=== PATIENT | female | born 1965 | race African-American/Black ===

== ENCOUNTER 2018-03-20 08:57 | Emergency (ER) | payer MEDICAID ==
[~2018-03-20] VITALS: Ht 165.1 cm; Wt 61.3 kg
[2018-03-20] MEDS ORDERED: MIDAZOLAM HCL 2 MG/2 ML VIAL IM ONE (09:15)
[2018-03-20] MEDS ORDERED: SODIUM PHOS/SODIUM BIPHOS 133 ML ENEMA PR ONE (09:15)
[2018-03-20] MEDS ORDERED: SODIUM CHLORIDE 0.9% 1,000 ML IV ONE (10:00)
[2018-03-20] MEDS ORDERED: LORazepam 2 MG/ML VIAL IVP ONE (10:00)
[2018-03-20] MEDS ORDERED: KETOROLAC TROMETHAMINE 30 MG/ML VIAL IVP ONE (10:00)
[2018-03-20] MEDS ORDERED: HALOPERIDOL LACTATE 5 MG/ML VIAL IVP ONE (10:30)
[2018-03-20 10:52] LABS: AMPHET/METH SCREEN,URINE POSITIVE (NEGATIVE); BARBITURATE SCREEN, URINE NEGATIVE (NEGATIVE); BENZODIAZEPINES SCREEN,URINE POSITIVE (NEGATIVE); CANNABINOID SCREEN,URINE NEGATIVE (NEGATIVE); COCAINE SCREEN,URINE NEGATIVE (NEGATIVE); METHADONE SCREEN, URINE NEGATIVE (NEGATIVE); OPIATE SCREEN,URINE NEGATIVE (NEGATIVE)
[2018-03-20 10:55] LABS: PHENCYCLIDINE SCREEN,URINE NEGATIVE (NEGATIVE)
[2018-03-20 10:58] LABS: APPEARANCE,URINE CLOUDY (CLEAR); BILIRUBIN,URINE NEGATIVE (NEGATIVE); GLUCOSE, URINE (UA) NEGATIVE (NEGATIVE); KETONES,URINE NEGATIVE (NEGATIVE); LEUKOCYTE ESTERASE ,URINE NEGATIVE (NEGATIVE); NITRATE,URINE NEGATIVE (NEGATIVE); OCCULT BLOOD,URINE SMALL (NEGATIVE); PH,URINE 7.5 (5.0-8.0); PROTEIN,URINE NEGATIVE (NEGATIVE); UROBILINOGEN,URINE 0.2 mg/dL (<=1.0)
[2018-03-20 11:09] LABS: BACTERIA,URINE Few /HPF (None Seen); RBC,URINE 0-2 /HPF (0-2); SQUAMOUS EPITHELIAL CELL,UR Few /LPF (None Seen); WBC,URINE None Seen /HPF (0-5)
[2018-03-20 11:24] LABS: ANION GAP 8 mmol/L (8-16); CALCIUM, TOTAL 7.8 mg/dL (8.8-10.5); CARBON DIOXIDE 29 mmol/L (22-29); CHLORIDE 104 mmol/L (98-107); CREATININE 0.89 mg/dL (0.60-1.30); GLOMERULAR FILTR. RATE CALC > 60 mL/min (>60); GLUCOSE,RANDOM 123 mg/dL (70-110); POTASSIUM 3.7 mmol/L (3.5-5.1); SODIUM SERUM 141 mmol/L (136-145); UREA NITROGEN, BLOOD 13 mg/dL (7-18)
[2018-03-20 11:25] LABS: BASOPHILS % (AUTO) 0.4 % (0.0-2.0); EOSINOPHILS % (AUTO) 0.1 % (1.0-6.0); HEMATOCRIT 40.1 % (36-46); HEMOGLOBIN 13.2 g/dL (12.0-16.0); LYMPHOCYTES # (AUTO) 0.8 K/uL (1.0-4.8); LYMPHOCYTES % (AUTO) 9.5 % (22.0-44.0); MEAN CORPUSCULAR HEMOGLOBIN 27.8 pg (26.0-34.0); MEAN CORPUSCULAR VOLUME 84 fL (80-100); MONOCYTES # (AUTO) 0.3 K/uL (0.1-1.0); MONOCYTES % (AUTO) 3.8 % (2.0-9.0); NEUTROPHILS # (AUTO) 7.3 K/uL (1.8-7.7); PLATELET COUNT (AUTO) 251 K/uL (150-450); RED BLOOD CELL COUNT(AUTO) 4.75 MIL/uL (4.00-5.20); RED CELL DISTRIBUTION WIDTH 13.8 % (11.5-14.5)
[2018-03-20 11:29] LABS: NEUTROPHILS % (AUTO) 86.2 % (40.0-70.0)
[2018-03-20 11:31] LABS: ALANINE AMINOTRANSFERASE 22 U/L (12-78); ALBUMIN 3.5 g/dL (3.4-5.0); ALKALINE PHOSPHATASE 73 U/L (46-116); ASPARTATE AMINOTRANSFERASE 25 U/L (15-37); BILIRUBIN,TOTAL 0.5 mg/dL (0.1-1.0); LIPASE 93 U/L (73-393)
[2018-03-20 11:38] LABS: HCG,QUANTITATIVE 1 mIU/mL (0-6)
[2018-03-20 14:07] VITALS: BP 123/77
[2018-03-20 20:20] LABS: GLUCOSE,POINT OF CARE 131 MG/DL (70-110)
== END 2018-03-20 16:11 | disposition home or self-care (01) ==
LOC: EMS 08:58
DX: N20.9 Urinary calculus, unspecified (principal); F41.9 Anxiety disorder, unspecified; F15.10 Other stimulant abuse, uncomplicated; R19.7 Diarrhea, unspecified; Z79.899 Other long term (current) drug therapy
CPT/HCPCS: 36415; 74176; 80053; 80307; 81001; 82962; 83690; 84702; 85025; 93005; 96372; 96374; 96375; 99285; J1630; J1885; J2060; J2250; J7030

== ENCOUNTER 2018-03-22 11:07 | Emergency (ER) | payer MEDICAID ==
[~2018-03-22] VITALS: Ht 152.4 cm; Wt 59.1 kg
[2018-03-22 12:47] VITALS: BP 147/87
== END 2018-03-22 12:50 | disposition home or self-care (01) ==
LOC: EMS 11:08
DX: B34.9 Viral infection, unspecified (principal); J06.9 Acute upper respiratory infection, unspecified; J02.9 Acute pharyngitis, unspecified; M79.10 Myalgia, unspecified site; R42 Dizziness and giddiness
CPT/HCPCS: 99283

== ENCOUNTER 2018-05-01 11:09 | Emergency (ER) | payer MEDICAID ==
[~2018-05-01] VITALS: Ht 152.4 cm; Wt 65.0 kg
[~2018-05-01 11:09] MED LIST: LISI-662 PO
[2018-05-01] MEDS ORDERED: IBUPROFEN 600 MG TABLET PO ONE (11:45)
[2018-05-01] MEDS ORDERED: PERTUSS(ACELL),DIPH,TET VAC/PF 0.5 ML VIAL IM ONE (11:45)
[2018-05-01 12:53] VITALS: BP 124/61
== END 2018-05-01 13:09 | disposition home or self-care (01) ==
LOC: EMS 11:11
DX: S61.211A Laceration without foreign body of left index finger without damage to nail, initial encounter (principal); Z79.899 Other long term (current) drug therapy; W25.XXXA Contact with sharp glass, initial encounter; Y93.E5 Activity, floor mopping and cleaning; Y92.098 Other place in other non-institutional residence as the place of occurrence of the external cause; Y99.8 Other external cause status
CPT/HCPCS: 90471; 90715

== ENCOUNTER 2018-05-21 01:30 | Emergency (ER) | payer MEDICAID ==
[~2018-05-21] VITALS: Ht 152.4 cm; Wt 61.4 kg
[2018-05-21] MEDS ORDERED: METH500T6 PO (01:42)
[2018-05-21 02:15] VITALS: BP 103/61
== END 2018-05-21 02:36 | disposition home or self-care (01) ==
LOC: EMS 01:31
DX: S90.464A Insect bite (nonvenomous), right lesser toe(s), initial encounter (principal); Z79.899 Other long term (current) drug therapy; W57.XXXA Bitten or stung by nonvenomous insect and other nonvenomous arthropods, initial encounter; Y93.89 Activity, other specified; Y92.89 Other specified places as the place of occurrence of the external cause; Y99.8 Other external cause status

== ENCOUNTER 2018-07-19 09:15 | Emergency (ER) | payer MEDICAID ==
[~2018-07-19] VITALS: Ht 152.4 cm; Wt 60.9 kg
[~2018-07-19 09:15] MED LIST changes: +METH500T6 PO
[2018-07-19 11:03] LABS: EOSINOPHILS % (AUTO) 0.9 % (1.0-6.0); HEMATOCRIT 37.2 % (36-46); HEMOGLOBIN 11.9 g/dL (12.0-16.0); LYMPHOCYTES # (AUTO) 1.6 K/uL (1.0-4.8); LYMPHOCYTES % (AUTO) 24.2 % (22.0-44.0); MEAN CORPUSCULAR HEMOGLOBIN 27.3 pg (26.0-34.0); MEAN CORPUSCULAR HGB CONC 32.1 G/dL (31.0-37.0); MEAN CORPUSCULAR VOLUME 85 fL (80-100); MONOCYTES # (AUTO) 0.5 K/uL (0.1-1.0); NEUTROPHILS # (AUTO) 4.4 K/uL (1.8-7.7); NEUTROPHILS % (AUTO) 66.9 % (40.0-70.0); PLATELET COUNT (AUTO) 292 K/uL (150-450); RED BLOOD CELL COUNT(AUTO) 4.37 MIL/uL (4.00-5.20)
[2018-07-19 11:21] LABS: ANION GAP 4 mmol/L (8-16); CALCIUM, TOTAL 8.5 mg/dL (8.8-10.5); CARBON DIOXIDE 31 mmol/L (22-29); CHLORIDE 104 mmol/L (98-107); CREATININE 0.69 mg/dL (0.60-1.30); GLOMERULAR FILTR. RATE CALC > 60 mL/min (>60); GLUCOSE,RANDOM 75 mg/dL (70-110); POTASSIUM 4.6 mmol/L (3.5-5.1); SODIUM SERUM 139 mmol/L (136-145); UREA NITROGEN, BLOOD 17 mg/dL (7-18)
[2018-07-19 11:33] LABS: ALANINE AMINOTRANSFERASE 20 U/L (12-78); ALBUMIN 3.2 g/dL (3.4-5.0); ALKALINE PHOSPHATASE 64 U/L (46-116); ASPARTATE AMINOTRANSFERASE 21 U/L (15-37); BILIRUBIN,TOTAL 0.5 mg/dL (0.1-1.0); HCG,QUANTITATIVE 2 mIU/mL (0-6); TOTAL PROTEIN, SERUM 6.6 g/dL (6.4-8.2)
[2018-07-19 11:46] LABS: APPEARANCE,URINE CLOUDY (CLEAR); BILIRUBIN,URINE NEGATIVE (NEGATIVE); GLUCOSE, URINE (UA) NEGATIVE (NEGATIVE); KETONES,URINE NEGATIVE (NEGATIVE); LEUKOCYTE ESTERASE ,URINE SMALL (NEGATIVE); NITRATE,URINE NEGATIVE (NEGATIVE); OCCULT BLOOD,URINE NEGATIVE (NEGATIVE); PH,URINE 5.5 (5.0-8.0); PROTEIN,URINE NEGATIVE (NEGATIVE); UROBILINOGEN,URINE 0.2 mg/dL (<=1.0)
[2018-07-19 11:48] LABS: AMPHET/METH SCREEN,URINE POSITIVE (NEGATIVE); BARBITURATE SCREEN, URINE NEGATIVE (NEGATIVE); BENZODIAZEPINES SCREEN,URINE NEGATIVE (NEGATIVE); CANNABINOID SCREEN,URINE NEGATIVE (NEGATIVE); COCAINE SCREEN,URINE NEGATIVE (NEGATIVE); METHADONE SCREEN, URINE NEGATIVE (NEGATIVE); OPIATE SCREEN,URINE NEGATIVE (NEGATIVE)
[2018-07-19 11:49] LABS: PHENCYCLIDINE SCREEN,URINE NEGATIVE (NEGATIVE)
[2018-07-19 11:53] LABS: BACTERIA,URINE None Seen /HPF (None Seen); RBC,URINE None Seen /HPF (0-2); SQUAMOUS EPITHELIAL CELL,UR Few /LPF (None Seen)
[2018-07-19] MEDS ORDERED: IBUPROFEN 600 MG TABLET PO ONE (12:15)
[2018-07-19 12:27] VITALS: BP 112/98
== END 2018-07-19 12:45 | disposition home or self-care (01) ==
LOC: EMS 09:18
DX: M54.5 Low back pain (principal)

== ENCOUNTER 2018-11-05 16:40 | Emergency (ER) | payer MEDICAID ==
[~2018-11-05] VITALS: Ht 165.1 cm; Wt 68.2 kg
[2018-11-05 16:46] VITALS: BP 132/92
== END 2018-11-05 19:18 | disposition left against medical advice (07) ==
LOC: EMS 16:41
DX: F41.9 Anxiety disorder, unspecified (principal); Z53.21 Procedure and treatment not carried out due to patient leaving prior to being seen by health care provider

== ENCOUNTER 2020-01-13 17:56 | Emergency (ER) | payer MEDICAID ==
[~2020-01-13] VITALS: Ht 152.4 cm; Wt 63.6 kg
[2020-01-13 19:18] LABS: BASOPHILS % (AUTO) 0.4 % (0.0-2.0); EOSINOPHILS % (AUTO) 0.9 % (1.0-6.0); HEMATOCRIT 38.9 % (36-46); HEMOGLOBIN 12.6 g/dL (12.0-16.0); LYMPHOCYTES # (AUTO) 1.8 K/uL (1.0-4.8); LYMPHOCYTES % (AUTO) 27.3 % (22.0-44.0); MEAN CORPUSCULAR HEMOGLOBIN 27.8 pg (26.0-34.0); MEAN CORPUSCULAR HGB CONC 32.5 G/dL (31.0-37.0); MEAN CORPUSCULAR VOLUME 86 fL (80-100); MONOCYTES # (AUTO) 0.5 K/uL (0.1-1.0); MONOCYTES % (AUTO) 7.8 % (2.0-9.0); NEUTROPHILS # (AUTO) 4.2 K/uL (1.8-7.7); NEUTROPHILS % (AUTO) 63.6 % (40.0-70.0); PLATELET COUNT (AUTO) 341 K/uL (150-450); RED BLOOD CELL COUNT(AUTO) 4.56 MIL/uL (4.00-5.20); RED CELL DISTRIBUTION WIDTH 13.3 % (11.5-14.5)
[2020-01-13 19:29] LABS: ANION GAP 4 mmol/L (8-16); CALCIUM, TOTAL 9.1 mg/dL (8.8-10.5); CARBON DIOXIDE 31 mmol/L (22-29); CHLORIDE 105 mmol/L (98-107); CREATININE 1.08 mg/dL (0.60-1.30); GLOMERULAR FILTR. RATE CALC > 60 mL/min (>60); GLUCOSE,RANDOM 88 mg/dL (70-110); POTASSIUM 4.1 mmol/L (3.5-5.1); SODIUM SERUM 140 mmol/L (136-145); UREA NITROGEN, BLOOD 16 mg/dL (7-18)
[2020-01-13 19:34] LABS: ALANINE AMINOTRANSFERASE 24 U/L (12-78); ALBUMIN 3.6 g/dL (3.4-5.0); ALKALINE PHOSPHATASE 79 U/L (46-116); ASPARTATE AMINOTRANSFERASE 22 U/L (15-37); BILIRUBIN,TOTAL 0.5 mg/dL (0.1-1.0); TOTAL PROTEIN, SERUM 7.5 g/dL (6.4-8.2)
[2020-01-13 20:15] VITALS: BP 132/82
== END 2020-01-13 20:16 | disposition home or self-care (01) ==
LOC: EMS 17:56
DX: R42 Dizziness and giddiness (principal)
CPT/HCPCS: 93005

== ENCOUNTER 2020-10-17 04:00 | Emergency (ER) | payer MEDICAID ==
[~2020-10-17] VITALS: Ht 154.9 cm; Wt 65.0 kg
[~2020-10-17 04:00] MED LIST changes: -LISI-662 PO; +LISI-894 PO; +METH-811 PO; -METH500T6 PO
[2020-10-17] MEDS ORDERED: GuaiFENesin/D-METHORPHAN [SUGAR-FREE] 200-20MG/10 ML SYRUP UDCUP PO ONE (04:45)
[2020-10-17] MEDS ORDERED: ACETAMINOPHEN 500 MG TABLET PO ONE (04:45)
[2020-10-17 05:05] LABS: COVID AG,FIA SOURCE NASOPHARYNGEAL
[2020-10-17 06:12] VITALS: BP 128/94
== END 2020-10-17 06:13 | disposition home or self-care (01) ==
LOC: EMS 04:01
DX: J06.9 Acute upper respiratory infection, unspecified (principal); Z79.899 Other long term (current) drug therapy; Z20.822 Contact with and (suspected) exposure to COVID-19
CPT/HCPCS: 87426; 99283

== ENCOUNTER 2020-11-03 01:57 | Emergency (ER) | payer MEDICAID ==
[~2020-11-03] VITALS: Ht 162.6 cm; Wt 65.0 kg
[2020-11-03] MEDS ORDERED: LIDOCAINE 1% 10 ML VIAL ID ONE (03:30)
[2020-11-03 04:14] VITALS: BP 147/104
== END 2020-11-03 04:31 | disposition left against medical advice (07) ==
LOC: EMS 01:58
DX: S60.551A Superficial foreign body of right hand, initial encounter (principal); F41.9 Anxiety disorder, unspecified; X58.XXXA Exposure to other specified factors, initial encounter; Y93.89 Activity, other specified; Y92.89 Other specified places as the place of occurrence of the external cause; Y99.0 Civilian activity done for income or pay
CPT/HCPCS: 73130; 99283; J3490

== ENCOUNTER 2020-11-03 09:20 | Emergency (ER) | payer MEDICAID ==
[~2020-11-03] VITALS: Ht 162.6 cm; Wt 65.0 kg
[2020-11-03 09:21] VITALS: BP 125/96
[2020-11-03] MEDS ORDERED: DOXYCYCLINE HYCLATE 100 MG TABLET PO ONE (10:30)
[2020-11-03] MEDS ORDERED: BACITRACIN 0.9 GM PACKET OINTMENT TP ONE (10:30)
== END 2020-11-03 11:01 | disposition home or self-care (01) ==
LOC: EMS 09:26
DX: S60.551A Superficial foreign body of right hand, initial encounter (principal); I10 Essential (primary) hypertension; F17.210 Nicotine dependence, cigarettes, uncomplicated; W45.8XXA Other foreign body or object entering through skin, initial encounter; Y93.89 Activity, other specified; Y92.89 Other specified places as the place of occurrence of the external cause; Y99.8 Other external cause status
CPT/HCPCS: 10120; 99285; Z7502; Z7610

== ENCOUNTER 2020-11-24 21:39 | Emergency (ER) | payer MEDICAID | END 2020-11-24 23:10 | disposition left against medical advice (07) | LOC: EMS 21:40 | DX: Z00.00 Encounter for general adult medical examination without abnormal findings (principal); Z53.21 Procedure and treatment not carried out due to patient leaving prior to being seen by health care provider ==

== ENCOUNTER 2020-12-05 09:59 | Emergency (ER) | payer MEDICAID ==
[~2020-12-05] VITALS: Ht 162.6 cm; Wt 65.0 kg
[2020-12-05] MEDS ORDERED: MAGNESIUM CITRATE 300 ML ORAL SOLUTION PO ONE (10:30)
[2020-12-05] MEDS ORDERED: HALOPERIDOL LACTATE 5 MG/ML VIAL IM ONE (11:15)
[2020-12-05] MEDS ORDERED: SODIUM PHOS/SODIUM BIPHOS 133 ML ENEMA PR ONE (11:15)
[2020-12-05] MEDS ORDERED: SODIUM CHLORIDE 0.9% 0 ML ONE (11:43)
[2020-12-05] MEDS ORDERED: IOHEXOL 350 MG/ML 100 ML VIAL ONE (11:43)
[2020-12-05] MEDS ORDERED: ACETAMINOPHEN 325 MG TABLET PO ONE (11:45)
[2020-12-05 11:46] LABS: BASOPHILS % (AUTO) 0.1 % (0.0-2.0); EOSINOPHILS % (AUTO) 0.1 % (1.0-6.0); HEMATOCRIT 43.3 % (36-46); HEMOGLOBIN 13.4 g/dL (12.0-16.0); LYMPHOCYTES # (AUTO) 1.3 K/uL (1.0-4.8); LYMPHOCYTES % (AUTO) 12.5 % (22.0-44.0); MEAN CORPUSCULAR HEMOGLOBIN 26.9 pg (26.0-34.0); MEAN CORPUSCULAR VOLUME 87 fL (80-100); MONOCYTES # (AUTO) 0.5 K/uL (0.1-1.0); MONOCYTES % (AUTO) 4.9 % (2.0-9.0); NEUTROPHILS # (AUTO) 8.5 K/uL (1.8-7.7); NEUTROPHILS % (AUTO) 82.4 % (40.0-70.0); PLATELET COUNT (AUTO) 309 K/uL (150-450); RED BLOOD CELL COUNT(AUTO) 5.01 MIL/uL (4.00-5.20); RED CELL DISTRIBUTION WIDTH 13.7 % (11.5-14.5)
[2020-12-05 11:50] LABS: ANION GAP 7 mmol/L (8-16); CALCIUM, TOTAL 8.9 mg/dL (8.8-10.5); CARBON DIOXIDE 25 mmol/L (22-29); CHLORIDE 102 mmol/L (98-107); CREATININE 0.97 mg/dL (0.60-1.30); GLOMERULAR FILTR. RATE CALC > 60 mL/min (>60); GLUCOSE,RANDOM 118 mg/dL (70-110); POTASSIUM 4.3 mmol/L (3.5-5.1); SODIUM SERUM 134 mmol/L (136-145); UREA NITROGEN, BLOOD 18 mg/dL (7-18)
[2020-12-05] MEDS ORDERED: KETOROLAC TROMETHAMINE 30 MG/ML VIAL IM ONE (12:00)
[2020-12-05] MEDS ORDERED: KETOROLAC TROMETHAMINE 30 MG/ML VIAL IVP ONE (12:00)
[2020-12-05 12:12] LABS: LACTIC ACID 2.2 mmol/L (0.4-2.0)
[2020-12-05 12:15] LABS: ALANINE AMINOTRANSFERASE 27 U/L (12-78); ALBUMIN 3.6 g/dL (3.4-5.0); ALKALINE PHOSPHATASE 83 U/L (46-116); ASPARTATE AMINOTRANSFERASE 25 U/L (15-37); BILIRUBIN,TOTAL 0.6 mg/dL (0.1-1.0); LIPASE 50 U/L (73-393); TOTAL PROTEIN, SERUM 7.5 g/dL (6.4-8.2)
[2020-12-05 14:15] VITALS: BP 173/87
== END 2020-12-05 14:51 | disposition home or self-care (01) ==
LOC: EMS 10:07
DX: N13.2 Hydronephrosis with renal and ureteral calculous obstruction (principal); F17.210 Nicotine dependence, cigarettes, uncomplicated; I10 Essential (primary) hypertension; Z79.899 Other long term (current) drug therapy
CPT/HCPCS: 36415; 74022; 74176; 80053; 81002; 83605; 83690; 85025; 96372; 99285; J1630; J1885; A9575; J7050

== ENCOUNTER 2021-09-24 21:07 | Emergency (ER) | payer MEDICAID | END 2021-09-24 22:00 | disposition left against medical advice (07) | LOC: EMS 21:08 | DX: T62.91XA Toxic effect of unspecified noxious substance eaten as food, accidental (unintentional), initial encounter (principal); Z53.21 Procedure and treatment not carried out due to patient leaving prior to being seen by health care provider; Y92.89 Other specified places as the place of occurrence of the external cause ==

== ENCOUNTER 2022-01-14 12:34 | Emergency (ER) | payer MEDICAID ==
[~2022-01-14] VITALS: Ht 154.9 cm; Wt 65.0 kg
[2022-01-14 12:38] VITALS: BP 125/72
== END 2022-01-14 14:06 | disposition left against medical advice (07) ==
LOC: EMS 12:35
DX: Z53.21 Procedure and treatment not carried out due to patient leaving prior to being seen by health care provider (principal)

== ENCOUNTER 2023-01-14 13:54 | Emergency (ER) | payer MEDICAID ==
[~2023-01-14] VITALS: Ht 152.4 cm; Wt 68.2 kg
[~2023-01-14 13:54] MED LIST changes: -METH-811 PO
[2023-01-14 13:59] VITALS: TEMP 98.2
[2023-01-14] MEDS ORDERED: HydrOXYzine PAMOATE 50 MG CAPSULE PO ONE (14:30)
[2023-01-14 14:55] LABS: BASOPHILS % (AUTO) 0.6 % (0.0-2.0); EOSINOPHILS % (AUTO) 0.9 % (1.0-6.0); HEMATOCRIT 38.8 % (36-46); HEMOGLOBIN 12.6 g/dL (12.0-16.0); LYMPHOCYTES # (AUTO) 2.3 K/uL (1.0-4.8); MEAN CORPUSCULAR HEMOGLOBIN 27.1 pg (26.0-34.0); MEAN CORPUSCULAR HGB CONC 32.5 G/dL (31.0-37.0); MEAN CORPUSCULAR VOLUME 84 fL (80-100); MONOCYTES # (AUTO) 0.4 K/uL (0.1-1.0); NEUTROPHILS # (AUTO) 4.3 K/uL (1.8-7.7); NEUTROPHILS % (AUTO) 60.5 % (40.0-70.0); PLATELET COUNT (AUTO) 330 K/uL (150-450); RED BLOOD CELL COUNT(AUTO) 4.65 MIL/uL (4.00-5.20); RED CELL DISTRIBUTION WIDTH 13.5 % (11.5-14.5)
[2023-01-14 15:02] LABS: ANION GAP 6 mmol/L (8-16); CALCIUM, TOTAL 8.3 mg/dL (8.8-10.5); CARBON DIOXIDE 29 mmol/L (22-29); CHLORIDE 104 mmol/L (98-107); CREATININE 0.89 mg/dL (0.60-1.30); GLOMERULAR FILTR. RATE CALC > 60 mL/min (>60); GLUCOSE,RANDOM 106 mg/dL (70-110); POTASSIUM 3.8 mmol/L (3.5-5.1); SODIUM SERUM 139 mmol/L (136-145)
[2023-01-14 15:30] VITALS: BP 111/74; PULSE 69; RESP 17
[2023-01-14] MEDS ORDERED: HYDR50CA7 PO (15:58)
== END 2023-01-14 16:04 | disposition home or self-care (01) ==
LOC: EMS 13:57
DX: R06.00 Dyspnea, unspecified (principal); F41.9 Anxiety disorder, unspecified; I10 Essential (primary) hypertension; F17.210 Nicotine dependence, cigarettes, uncomplicated; Z98.890 Other specified postprocedural states
CPT/HCPCS: 71045; 80048; 84484; 85025; 93005; 99285; 36415-L1; 36415-TC

== ENCOUNTER 2023-07-31 12:46 | Emergency (ER) | payer MEDICAID ==
[~2023-07-31] VITALS: Ht 152.4 cm; Wt 63.6 kg
[~2023-07-31 12:46] MED LIST changes: +HYDR50CA7 PO
[2023-07-31 12:50] VITALS: TEMP 98.5
[2023-07-31 13:34] LABS: AMPHET/METH SCREEN,URINE POSITIVE (NEGATIVE); BARBITURATE SCREEN, URINE NEGATIVE (NEGATIVE); BENZODIAZEPINES SCREEN,URINE NEGATIVE (NEGATIVE); CANNABINOID SCREEN,URINE NEGATIVE (NEGATIVE); COCAINE SCREEN,URINE NEGATIVE (NEGATIVE); METHADONE SCREEN, URINE NEGATIVE (NEGATIVE); OPIATE SCREEN,URINE NEGATIVE (NEGATIVE); PHENCYCLIDINE SCREEN,URINE NEGATIVE (NEGATIVE)
[2023-07-31 13:35] VITALS: BP 149/105; PULSE 92; RESP 18
[2023-07-31 13:40] LABS: ALCOHOL, URINE DRUG SCREEN NEGATIVE (NEGATIVE)
== END 2023-07-31 14:24 | disposition home or self-care (01) ==
LOC: EMS 13:11
DX: T43.651A Poisoning by methamphetamines accidental (unintentional), initial encounter (principal); I10 Essential (primary) hypertension; F17.210 Nicotine dependence, cigarettes, uncomplicated; Z98.890 Other specified postprocedural states; Y92.89 Other specified places as the place of occurrence of the external cause
CPT/HCPCS: 80307; 99283

== ENCOUNTER 2023-08-24 10:38 | Emergency (ER) | payer MEDICAID ==
[~2023-08-24] VITALS: Ht 153 cm; Wt 65.0 kg
[2023-08-24 10:41] VITALS: TEMP 97.7
[2023-08-24 11:18] LABS: BASOPHILS % (AUTO) 0.7 % (0.0-2.0); EOSINOPHILS % (AUTO) 0.6 % (1.0-6.0); HEMATOCRIT 39.6 % (36-46); HEMOGLOBIN 12.8 g/dL (12.0-16.0); LYMPHOCYTES # (AUTO) 1.9 K/uL (1.0-4.8); LYMPHOCYTES % (AUTO) 20.6 % (22.0-44.0); MEAN CORPUSCULAR HEMOGLOBIN 26.9 pg (26.0-34.0); MEAN CORPUSCULAR HGB CONC 32.3 G/dL (31.0-37.0); MEAN CORPUSCULAR VOLUME 83 fL (80-100); MONOCYTES # (AUTO) 0.6 K/uL (0.1-1.0); MONOCYTES % (AUTO) 6.2 % (2.0-9.0); NEUTROPHILS # (AUTO) 6.7 K/uL (1.8-7.7); NEUTROPHILS % (AUTO) 71.9 % (40.0-70.0); PLATELET COUNT (AUTO) 353 K/uL (150-450); RED BLOOD CELL COUNT(AUTO) 4.76 MIL/uL (4.00-5.20); RED CELL DISTRIBUTION WIDTH 13.5 % (11.5-14.5); WHITE BLOOD COUNT (AUTO) 9.4 K/uL (4.5-11.0)
[2023-08-24 11:35] LABS: ANION GAP 5 mmol/L (8-16); CALCIUM, TOTAL 9.2 mg/dL (8.8-10.5); CARBON DIOXIDE 31 mmol/L (22-29); CHLORIDE 102 mmol/L (98-107); CREATININE 0.88 mg/dL (0.60-1.30); GLOMERULAR FILTR. RATE CALC > 60 mL/min (>60); GLUCOSE,RANDOM 76 mg/dL (70-110); POTASSIUM 4.2 mmol/L (3.5-5.1); SODIUM SERUM 138 mmol/L (136-145); UREA NITROGEN, BLOOD 14 mg/dL (7-18)
[2023-08-24 11:40] LABS: ALANINE AMINOTRANSFERASE 23 U/L (12-78); ALBUMIN 3.3 g/dL (3.4-5.0); ALKALINE PHOSPHATASE 85 U/L (46-116); ASPARTATE AMINOTRANSFERASE 22 U/L (15-37); BILIRUBIN,TOTAL 0.9 mg/dL (0.1-1.0); LIPASE 31 U/L (16-77); TOTAL PROTEIN, SERUM 7.5 g/dL (6.4-8.2)
[2023-08-24 11:59] LABS: APPEARANCE,URINE CLEAR (CLEAR); BILIRUBIN,URINE NEGATIVE (NEGATIVE); COLOR,URINE YELLOW (YELLOW); GLUCOSE, URINE (UA) NEGATIVE (NEGATIVE); KETONES,URINE NEGATIVE (NEGATIVE); LEUKOCYTE ESTERASE ,URINE NEGATIVE (NEGATIVE); NITRATE,URINE NEGATIVE (NEGATIVE); OCCULT BLOOD,URINE TRACE (NEGATIVE); PH,URINE 5.5 (5.0-8.0); PROTEIN,URINE TRACE mg/dL (NEGATIVE); SPECIFIC GRAVITIY, URINE 1.025 (1.003-1.030); UROBILINOGEN,URINE <=1.0 mg/dL (<=1.0)
[2023-08-24 12:07] LABS: RBC,URINE 0-2 /HPF (0-2); WBC,URINE None Seen /HPF (0-5)
[2023-08-24 12:08] LABS: BACTERIA,URINE Moderate /HPF (None Seen); SQUAMOUS EPITHELIAL CELL,UR Many /LPF (None Seen)
[2023-08-24 12:25] VITALS: BP 126/73; PULSE 82; RESP 16
== END 2023-08-24 13:15 | disposition left against medical advice (07) ==
LOC: EMS 10:38
DX: R10.84 Generalized abdominal pain (principal); I10 Essential (primary) hypertension; F17.210 Nicotine dependence, cigarettes, uncomplicated; Z98.890 Other specified postprocedural states
CPT/HCPCS: 74176; 80053; 81001; 83690; 85025; 87086; 87186; 99284

== ENCOUNTER 2023-12-11 07:59 | Emergency (ER) | payer MEDICAID ==
[~2023-12-11] VITALS: Ht 152.4 cm; Wt 72.7 kg
[2023-12-11 08:06] VITALS: TEMP 98.5
[2023-12-11] MEDS: MAG HYDROX/ALUMINUM HYD/SIMETH 30 ML SUSPENSION UDCUP PO ONE (08:26)
[2023-12-11] MEDS: ACETAMINOPHEN 500 MG TABLET PO ONE (08:27)
[2023-12-11 08:52] LABS: ANION GAP 5 mmol/L (8-16); BASOPHILS % (AUTO) 0.2 % (0.0-2.0); CARBON DIOXIDE 31 mmol/L (22-29); CHLORIDE 104 mmol/L (98-107); CREATININE 0.83 mg/dL (0.60-1.30); EOSINOPHILS % (AUTO) 0.6 % (1.0-6.0); GLOMERULAR FILTR. RATE CALC > 60 mL/min (>60); GLUCOSE,RANDOM 95 mg/dL (70-110); HEMATOCRIT 37.3 % (36-46); LYMPHOCYTES # (AUTO) 2.6 K/uL (1.0-4.8); LYMPHOCYTES % (AUTO) 29.5 % (22.0-44.0); MEAN CORPUSCULAR HGB CONC 32.2 G/dL (31.0-37.0); MEAN CORPUSCULAR VOLUME 84 fL (80-100); MONOCYTES # (AUTO) 0.8 K/uL (0.1-1.0); MONOCYTES % (AUTO) 8.5 % (2.0-9.0); NEUTROPHILS # (AUTO) 5.5 K/uL (1.8-7.7); NEUTROPHILS % (AUTO) 61.2 % (40.0-70.0); PLATELET COUNT (AUTO) 333 K/uL (150-450); POTASSIUM 4.1 mmol/L (3.5-5.1); RED BLOOD CELL COUNT(AUTO) 4.45 MIL/uL (4.00-5.20); RED CELL DISTRIBUTION WIDTH 13.6 % (11.5-14.5); SODIUM SERUM 140 mmol/L (136-145); UREA NITROGEN, BLOOD 11 mg/dL (7-18)
[2023-12-11 08:58] LABS: ALANINE AMINOTRANSFERASE 21 U/L (12-78); ALBUMIN 3.2 g/dL (3.4-5.0); ALKALINE PHOSPHATASE 78 U/L (46-116); ASPARTATE AMINOTRANSFERASE 22 U/L (15-37); BILIRUBIN,TOTAL 0.6 mg/dL (0.1-1.0)
[2023-12-11 09:00] LABS: TROPONIN I-HIGH SENSITIVITY 39 ng/L (<51)
[2023-12-11 09:11] LABS: LIPASE 25 U/L (16-77)
[2023-12-11 09:31] VITALS: BP 125/74; PULSE 89; RESP 18
== END 2023-12-11 09:34 | disposition home or self-care (01) ==
LOC: EMS 07:59
DX: R42 Dizziness and giddiness (principal); R20.2 Paresthesia of skin; I10 Essential (primary) hypertension; F17.210 Nicotine dependence, cigarettes, uncomplicated
CPT/HCPCS: 80048; 80076; 83690; 84484; 85025; 93005; 99284

== ENCOUNTER 2023-12-28 18:38 | Emergency (ER) | payer MEDICAID ==
[~2023-12-28] VITALS: Ht 152.4 cm; Wt 65.0 kg
[2023-12-28 18:42] VITALS: BP 138/67; PULSE 83; RESP 18; TEMP 98.5
[2023-12-28] MEDS: PERTUSS(ACELL),DIPH,TET/PF 0.5 ML SYRINGE [ADULT] IM. ONE (20:30)
[2023-12-28] MEDS: IBUPROFEN 600 MG TABLET PO ONE (20:31)
[2023-12-28] MEDS: CEPHALEXIN MONOHYDRATE 500 MG CAPSULE PO ONE (20:31)
== END 2023-12-28 21:36 | disposition home or self-care (01) ==
LOC: EMS 18:38
DX: S91.331A Puncture wound without foreign body, right foot, initial encounter (principal); I10 Essential (primary) hypertension; D64.9 Anemia, unspecified; F17.210 Nicotine dependence, cigarettes, uncomplicated; Z98.890 Other specified postprocedural states; X58.XXXA Exposure to other specified factors, initial encounter; Y93.89 Activity, other specified; Y92.89 Other specified places as the place of occurrence of the external cause; Y99.8 Other external cause status
CPT/HCPCS: 90471; 90715; 99283

== ENCOUNTER 2024-02-11 15:12 | Emergency (ER) | payer MEDICAID ==
[~2024-02-11] VITALS: Ht 152.4 cm; Wt 64.5 kg
[2024-02-11 15:19] VITALS: TEMP 97.7
[2024-02-11] MEDS ORDERED: CEPH-558 PO (15:56)
[2024-02-11] MEDS ORDERED: IBUP-1506 PO (15:56)
[2024-02-11] MEDS: IBUPROFEN 600 MG TABLET PO ONE (16:03)
[2024-02-11] MEDS: CEPHALEXIN MONOHYDRATE 500 MG CAPSULE PO ONE (16:04)
[2024-02-11 16:25] VITALS: BP 121/75; PULSE 74; RESP 18; O2SAT 99
== END 2024-02-11 16:33 | disposition home or self-care (01) ==
LOC: EMS 15:12
DX: S20.161A Insect bite (nonvenomous) of breast, right breast, initial encounter (principal); I10 Essential (primary) hypertension; F17.210 Nicotine dependence, cigarettes, uncomplicated; Z98.890 Other specified postprocedural states; W57.XXXA Bitten or stung by nonvenomous insect and other nonvenomous arthropods, initial encounter; Y93.89 Activity, other specified; Y92.89 Other specified places as the place of occurrence of the external cause; Y99.8 Other external cause status
CPT/HCPCS: 99283

== ENCOUNTER 2024-02-14 08:43 | Emergency (ER) | payer MEDICAID ==
[~2024-02-14] VITALS: Ht 152.4 cm; Wt 65.0 kg
[~2024-02-14 08:43] MED LIST changes: +CEPH-558 PO; +IBUP-1506 PO
[2024-02-14 08:47] VITALS: BP 138/94; PULSE 80; RESP 18; TEMP 98.2; O2SAT 99
[2024-02-14] MEDS ORDERED: PRED-554 PO (09:26)
== END 2024-02-14 09:38 | disposition home or self-care (01) ==
LOC: EMS 08:47
DX: R21 Rash and other nonspecific skin eruption (principal); I10 Essential (primary) hypertension; D64.9 Anemia, unspecified; F17.210 Nicotine dependence, cigarettes, uncomplicated; Z98.890 Other specified postprocedural states
CPT/HCPCS: 99283; Z7502

== ENCOUNTER 2024-06-06 13:58 | Emergency (ER) | payer MEDICAID ==
[~2024-06-06 13:58] MED LIST changes: +PRED-554 PO
== END 2024-06-06 15:24 | disposition left against medical advice (07) ==
LOC: EMS 13:58
DX: R10.9 Unspecified abdominal pain (principal); Z53.21 Procedure and treatment not carried out due to patient leaving prior to being seen by health care provider

== ENCOUNTER 2024-07-26 06:51 | Emergency (ER) | payer MEDICAID ==
[~2024-07-26] VITALS: Ht 160 cm; Wt 65.0 kg
[2024-07-26 06:55] VITALS: TEMP 98.4
[2024-07-26] MEDS ORDERED: LISI20TA24 PO (07:06)
[2024-07-26 08:03] LABS: BASOPHILS % (AUTO) 0.4 % (0.0-2.0); EOSINOPHILS % (AUTO) 1.1 % (1.0-6.0); HEMATOCRIT 39.9 % (36-46); LYMPHOCYTES # (AUTO) 1.7 K/uL (1.0-4.8); LYMPHOCYTES % (AUTO) 26.5 % (22.0-44.0); MEAN CORPUSCULAR HEMOGLOBIN 27.5 pg (26.0-34.0); MEAN CORPUSCULAR HGB CONC 32.6 G/dL (31.0-37.0); MEAN CORPUSCULAR VOLUME 84 fL (80-100); MONOCYTES # (AUTO) 0.5 K/uL (0.1-1.0); MONOCYTES % (AUTO) 7.8 % (2.0-9.0); NEUTROPHILS # (AUTO) 4.2 K/uL (1.8-7.7); NEUTROPHILS % (AUTO) 64.2 % (40.0-70.0); PLATELET COUNT (AUTO) 344 K/uL (150-450); RED BLOOD CELL COUNT(AUTO) 4.73 MIL/uL (4.00-5.20); RED CELL DISTRIBUTION WIDTH 13.5 % (11.5-14.5); WHITE BLOOD COUNT (AUTO) 6.5 K/uL (4.5-11.0)
[2024-07-26] MEDS: IBUPROFEN 600 MG TABLET PO ONE (08:03)
[2024-07-26] MEDS ORDERED: IBUP-1492 PO (09:17)
[2024-07-26 09:22] VITALS: BP 129/85; PULSE 91; RESP 18; O2SAT 99
== END 2024-07-26 09:28 | disposition home or self-care (01) ==
LOC: EMS 06:53
DX: S93.402A Sprain of unspecified ligament of left ankle, initial encounter (principal); I10 Essential (primary) hypertension; F17.210 Nicotine dependence, cigarettes, uncomplicated; Z79.899 Other long term (current) drug therapy; X58.XXXA Exposure to other specified factors, initial encounter; Y93.89 Activity, other specified; Y92.89 Other specified places as the place of occurrence of the external cause; Y99.8 Other external cause status
CPT/HCPCS: 29515; 85025; 99284

== ENCOUNTER 2024-09-17 12:51 | Emergency (ER) | payer MEDICAID ==
[~2024-09-17] VITALS: Ht 152.4 cm; Wt 70.5 kg
[~2024-09-17 12:51] MED LIST changes: -CEPH-558 PO; -HYDR50CA7 PO; +IBUP-1492 PO; -IBUP-1506 PO; -LISI-894 PO; +LISI20TA24 PO; -PRED-554 PO
[2024-09-17 13:01] VITALS: BP 130/91; PULSE 98; RESP 18; TEMP 98.6; O2SAT 99
== END 2024-09-17 14:38 | disposition left against medical advice (07) ==
LOC: EMS 12:51
DX: M79.644 Pain in right finger(s) (principal); I10 Essential (primary) hypertension; F17.210 Nicotine dependence, cigarettes, uncomplicated; Z79.899 Other long term (current) drug therapy
CPT/HCPCS: 99283

== ENCOUNTER 2024-11-25 10:59 | Emergency (ER) | payer MEDICAID ==
[~2024-11-25] VITALS: Ht 154.9 cm; Wt 65.0 kg
[2024-11-25 11:10] VITALS: BP 152/95; PULSE 86; RESP 18; TEMP 97.5; O2SAT 100
[2024-11-25] MEDS: ACETAMINOPHEN 500 MG TABLET PO ONE (11:54)
[2024-11-25] MEDS ORDERED: ACET-3385 PO (12:19)
[2024-11-25] MEDS ORDERED: IBUP-1492 PO (12:19)
== END 2024-11-25 13:12 | disposition home or self-care (01) ==
LOC: EMS 11:03
DX: S39.012A Strain of muscle, fascia and tendon of lower back, initial encounter (principal); I10 Essential (primary) hypertension; F17.210 Nicotine dependence, cigarettes, uncomplicated; Z98.890 Other specified postprocedural states; Z79.899 Other long term (current) drug therapy; X50.0XXA Overexertion from strenuous movement or load, initial encounter; Y93.89 Activity, other specified; Y92.89 Other specified places as the place of occurrence of the external cause; Y99.8 Other external cause status
CPT/HCPCS: 99282; Z7502; Z7610

== ENCOUNTER 2024-11-27 13:23 | Emergency (ER) | payer MEDICAID ==
[~2024-11-27] VITALS: Ht 157.5 cm; Wt 77.3 kg
[~2024-11-27 13:23] MED LIST changes: +ACET-3385 PO
[2024-11-27 13:27] VITALS: TEMP 98.1
[2024-11-27 15:30] VITALS: BP 134/77; PULSE 87; RESP 16; O2SAT 98
[2024-11-27] MEDS ORDERED: IBUP-1554 PO (15:56)
[2024-11-27] MEDS ORDERED: METH-812 PO (15:56)
[2024-11-27] MEDS: KETOROLAC TROMETHAMINE 60 MG/2 ML VIAL IM ONE (16:14)
[2024-11-27] MEDS: methocarbamoL 500 MG TABLET PO ONE (16:14)
== END 2024-11-27 16:14 | disposition home or self-care (01) ==
LOC: EMS 13:23
DX: G89.29 Other chronic pain (principal); M54.50 Low back pain, unspecified; Z79.899 Other long term (current) drug therapy
CPT/HCPCS: 99283; 96372; J1885

== ENCOUNTER 2024-11-29 09:18 | Emergency (ER) | payer MEDICAID ==
[~2024-11-29] VITALS: Ht 154.9 cm; Wt 68.6 kg
[~2024-11-29 09:18] MED LIST changes: +IBUP-1554 PO; +METH-812 PO
[2024-11-29 09:27] VITALS: BP 145/85; PULSE 76; RESP 16; TEMP 98.1; O2SAT 98
== END 2024-11-29 10:34 | disposition left against medical advice (07) ==
LOC: EMS 09:22
DX: M79.18 Myalgia, other site (principal); I10 Essential (primary) hypertension; F17.210 Nicotine dependence, cigarettes, uncomplicated; Z79.899 Other long term (current) drug therapy
CPT/HCPCS: 99281; 99282; Z7502

== ENCOUNTER 2025-02-15 19:12 | Emergency (ER) | payer MEDICAID ==
[~2025-02-15] VITALS: Ht 152.4 cm; Wt 64.1 kg
[2025-02-15 19:17] VITALS: BP 113/93; PULSE 83; RESP 16; TEMP 97.9; O2SAT 97
== END 2025-02-15 20:18 | disposition left against medical advice (07) ==
LOC: EMS 19:14
DX: R19.7 Diarrhea, unspecified (principal); Z53.21 Procedure and treatment not carried out due to patient leaving prior to being seen by health care provider
CPT/HCPCS: 93005

== ENCOUNTER 2025-02-25 19:23 | Emergency (ER) | payer MEDICAID ==
[~2025-02-25] VITALS: Ht 152.4 cm; Wt 69.5 kg
[2025-02-25 20:15] VITALS: BP 132/72; PULSE 85; RESP 18; TEMP 97.9; O2SAT 100
[2025-02-25 20:23] LABS: PLATELET COUNT (AUTO) 336 K/uL (150-450); RED BLOOD CELL COUNT(AUTO) 4.40 MIL/uL (4.00-5.20); RED CELL DISTRIBUTION WIDTH 13.5 % (11.5-14.5); WHITE BLOOD COUNT (AUTO) 8.1 K/uL (4.5-11.0)
[2025-02-25 20:26] LABS: CALCIUM, TOTAL 8.1 mg/dL (8.8-10.5); CREATININE 0.88 mg/dL (0.60-1.30); GLOMERULAR FILTR. RATE CALC > 60 mL/min (>60); GLUCOSE,RANDOM 86 mg/dL (70-110); SODIUM SERUM 140 mmol/L (136-145); UREA NITROGEN, BLOOD 12 mg/dL (7-18)
[2025-02-25 21:08] LABS: APPEARANCE,URINE CLEAR (CLEAR); GLUCOSE, URINE (UA) NEGATIVE (NEGATIVE); LEUKOCYTE ESTERASE ,URINE LARGE (NEGATIVE); NITRATE,URINE NEGATIVE (NEGATIVE); OCCULT BLOOD,URINE NEGATIVE (NEGATIVE); SPECIFIC GRAVITIY, URINE 1.026 (1.003-1.030)
[2025-02-25 21:52] LABS: SQUAMOUS EPITHELIAL CELL,UR Few /LPF (None Seen)
== END 2025-02-26 00:06 | disposition left against medical advice (07) ==
LOC: EMS 19:23
DX: R10.9 Unspecified abdominal pain (principal); M25.562 Pain in left knee; Z53.21 Procedure and treatment not carried out due to patient leaving prior to being seen by health care provider
CPT/HCPCS: 80048; 81001; 85025; 87086

== ENCOUNTER 2025-03-19 11:02 | Emergency (ER) | payer MEDICAID ==
[~2025-03-19] VITALS: Ht 152.4 cm; Wt 77.3 kg
[2025-03-19 11:11] VITALS: TEMP 97.9
[2025-03-19] MEDS ORDERED: [UNRECOGNIZED DRUG - CODE] (12:37)
[2025-03-19] MEDS ORDERED: IBUP-1492 PO (12:37)
[2025-03-19] MEDS ORDERED: METH-659 PO (12:37)
[2025-03-19 12:45] VITALS: BP 136/78; PULSE 74; RESP 18; O2SAT 97
== END 2025-03-19 13:21 | disposition home or self-care (01) ==
LOC: EMS 11:02
DX: S86.912A Strain of unspecified muscle(s) and tendon(s) at lower leg level, left leg, initial encounter (principal); M25.562 Pain in left knee; M25.462 Effusion, left knee; F17.210 Nicotine dependence, cigarettes, uncomplicated; K21.9 Gastro-esophageal reflux disease without esophagitis; I10 Essential (primary) hypertension; Z79.899 Other long term (current) drug therapy
CPT/HCPCS: 99283

== ENCOUNTER 2025-05-11 09:37 | Emergency (ER) | payer MEDICAID ==
[~2025-05-11] VITALS: Ht 152.4 cm; Wt 68.2 kg
[~2025-05-11 09:37] MED LIST changes: -ACET-3385 PO; -IBUP-1554 PO; +METH-659 PO; -METH-812 PO
[2025-05-11 09:40] VITALS: TEMP 98.6
[2025-05-11 10:54] LABS: PLATELET COUNT (AUTO) 339 K/uL (150-450); RED BLOOD CELL COUNT(AUTO) 4.47 MIL/uL (4.00-5.20); RED CELL DISTRIBUTION WIDTH 13.8 % (11.5-14.5); WHITE BLOOD COUNT (AUTO) 6.5 K/uL (4.5-11.0)
[2025-05-11 11:05] LABS: CALCIUM, TOTAL 8.6 mg/dL (8.8-10.5); CREATININE 0.87 mg/dL (0.60-1.30); GLOMERULAR FILTR. RATE CALC > 60 mL/min (>60); GLUCOSE,RANDOM 100 mg/dL (70-110); SODIUM SERUM 144 mmol/L (136-145); UREA NITROGEN, BLOOD 14 mg/dL (7-18)
[2025-05-11 11:57] LABS: APPEARANCE,URINE CLEAR (CLEAR); GLUCOSE, URINE (UA) NEGATIVE (NEGATIVE); LEUKOCYTE ESTERASE ,URINE LARGE (NEGATIVE); NITRATE,URINE NEGATIVE (NEGATIVE); OCCULT BLOOD,URINE NEGATIVE (NEGATIVE); SPECIFIC GRAVITIY, URINE 1.032 (1.003-1.030)
[2025-05-11 12:11] LABS: SQUAMOUS EPITHELIAL CELL,UR Moderate /LPF (None Seen)
[2025-05-11] MEDS ORDERED: TETR-58 PO (12:21)
[2025-05-11] MEDS ORDERED: METR250 PO (12:24)
[2025-05-11] MEDS ORDERED: OMEP-148 PO (12:24)
[2025-05-11] MEDS: LIDOCAINE/PF 1% 2 ML VIAL IM ONE (12:45)
[2025-05-11] MEDS: CefTRIAXone SODIUM 1 GM/VIAL IM ONE (12:45)
[2025-05-11 13:54] VITALS: BP 149/91; PULSE 90; RESP 18; O2SAT 98
[2025-05-11] MEDS ORDERED: CEPH-558 PO (13:59)
== END 2025-05-11 14:29 | disposition home or self-care (01) ==
LOC: EMS 09:39
DX: N39.0 Urinary tract infection, site not specified (principal); K21.9 Gastro-esophageal reflux disease without esophagitis; I10 Essential (primary) hypertension; F17.210 Nicotine dependence, cigarettes, uncomplicated; Z79.899 Other long term (current) drug therapy
CPT/HCPCS: 80048; 81001; 85025; 87077; 87086; 96372; 99283; J0696; J3490

== ENCOUNTER 2025-05-21 08:50 | Inpatient (IN) | payer MEDICAID ==
[~2025-05-21] VITALS: Ht 154.9 cm; Wt 75.2 kg
[~2025-05-21 08:50] MED LIST changes: +CEPH-558 PO; +METR250 PO; +OMEP-148 PO; +TETR-58 PO
[2025-05-21] MEDS ORDERED: BISM-171 PO (08:57)
[2025-05-21 09:36] LABS: APPEARANCE,URINE CLEAR (CLEAR); GLUCOSE, URINE (UA) NEGATIVE (NEGATIVE); LEUKOCYTE ESTERASE ,URINE SMALL (NEGATIVE); NITRATE,URINE NEGATIVE (NEGATIVE); OCCULT BLOOD,URINE TRACE (NEGATIVE); SPECIFIC GRAVITIY, URINE 1.024 (1.003-1.030)
[2025-05-21 10:00] LABS: PLATELET COUNT (AUTO) 360 K/uL (150-450); RED BLOOD CELL COUNT(AUTO) 4.48 MIL/uL (4.00-5.20); RED CELL DISTRIBUTION WIDTH 13.8 % (11.5-14.5); WHITE BLOOD COUNT (AUTO) 8.0 K/uL (4.5-11.0)
[2025-05-21 10:09] LABS: CALCIUM, TOTAL 8.7 mg/dL (8.8-10.5); CREATININE 0.87 mg/dL (0.60-1.30); GLOMERULAR FILTR. RATE CALC > 60 mL/min (>60); GLUCOSE,RANDOM 99 mg/dL (70-110); SODIUM SERUM 140 mmol/L (136-145); UREA NITROGEN, BLOOD 9 mg/dL (7-18)
[2025-05-21 10:11] LABS: SQUAMOUS EPITHELIAL CELL,UR Few /LPF (None Seen)
[2025-05-21 10:18] LABS: TROPONIN I-HIGH SENSITIVITY 798 ng/L (<51)
[2025-05-21 13:00] LABS: TROPONIN I-HIGH SENSITIVITY 834 ng/L (<51)
[2025-05-21] MEDS ORDERED: HEPARIN SODIUM,PORCINE 5,000 UNITS/ML VIAL IVP PRN ×2 (14:00)
[2025-05-21] MEDS: ASPIRIN 81 MG CHEWABLE TABLET PO SCH (14:21)
[2025-05-21 14:28] LABS: PLATELET COUNT (AUTO) 339 K/uL (150-450); RED BLOOD CELL COUNT(AUTO) 4.89 MIL/uL (4.00-5.20); RED CELL DISTRIBUTION WIDTH 14.3 % (11.5-14.5); WHITE BLOOD COUNT (AUTO) 9.0 K/uL (4.5-11.0)
[2025-05-21] MEDS: HEPARIN SODIUM 25000 UNITS/D5W 250 ML IV PRN (14:32)
[2025-05-21 16:33] VITALS: BP 150/97; PULSE 68; RESP 18; TEMP 98.1; O2SAT 100
[2025-05-21 20:12] VITALS: BP 162/97; PULSE 67; RESP 18; TEMP 98.1; O2SAT 100
[2025-05-21] MEDS: ATORVASTATIN CALCIUM 40 MG TABLET PO SCH (20:35)
[2025-05-22] VITALS (7 sets, daily range): BP systolic 129–158; BP diastolic 74–105; PULSE 67–90; RESP 15–19; TEMP 98–98.8; O2SAT 96–100
[2025-05-22] MEDS ORDERED: ACETAMINOPHEN 325 MG TABLET PO PRN (05:00)
[2025-05-22 07:58] LABS: PLATELET COUNT (AUTO) 375 K/uL (150-450); RED BLOOD CELL COUNT(AUTO) 4.92 MIL/uL (4.00-5.20); RED CELL DISTRIBUTION WIDTH 13.7 % (11.5-14.5); WHITE BLOOD COUNT (AUTO) 8.4 K/uL (4.5-11.0)
[2025-05-22 08:06] LABS: CALCIUM, TOTAL 8.7 mg/dL (8.8-10.5); CREATININE 0.65 mg/dL (0.60-1.30); GLOMERULAR FILTR. RATE CALC > 60 mL/min (>60); GLUCOSE,RANDOM 95 mg/dL (70-110); SODIUM SERUM 138 mmol/L (136-145); UREA NITROGEN, BLOOD 8 mg/dL (7-18)
[2025-05-22 08:21] LABS: TROPONIN I-HIGH SENSITIVITY 557 ng/L (<51)
[2025-05-22 10:02] LABS: ASPARTATE AMINOTRANSFERASE 26.0 U/L (15-37); TOTAL PROTEIN, SERUM 7.0 g/dL (6.4-8.2)
[2025-05-22] MEDS: FAMOTIDINE 20 MG TABLET PO SCH (11:15)
[2025-05-22] MEDS: HEPARIN SODIUM,PORCINE 5,000 UNITS/ML VIAL SQ SCH (16:17)
[2025-05-23 04:36] VITALS: BP 127/94; PULSE 92; RESP 18; TEMP 98.4; O2SAT 98
[2025-05-23 06:01] LABS: PLATELET COUNT (AUTO) 387 K/uL (150-450); RED BLOOD CELL COUNT(AUTO) 4.64 MIL/uL (4.00-5.20); RED CELL DISTRIBUTION WIDTH 13.8 % (11.5-14.5); WHITE BLOOD COUNT (AUTO) 8.1 K/uL (4.5-11.0)
[2025-05-23 06:07] LABS: CALCIUM, TOTAL 8.5 mg/dL (8.8-10.5); CREATININE 0.67 mg/dL (0.60-1.30); GLOMERULAR FILTR. RATE CALC > 60 mL/min (>60); GLUCOSE,RANDOM 110 mg/dL (70-110); SODIUM SERUM 139 mmol/L (136-145); UREA NITROGEN, BLOOD 11 mg/dL (7-18)
[2025-05-23 06:46] LABS: TROPONIN I-HIGH SENSITIVITY 357 ng/L (<51)
[2025-05-23 07:52] VITALS: BP 129/90; PULSE 97; RESP 19; TEMP 98.2; O2SAT 100
== END 2025-05-23 09:15 | disposition left against medical advice (07) | DRG 249 ==
LOC: EMS 09:02 → EDH 13:04 → 5S 16:16
PROVIDERS: ADMIT Internal Medicine; ATTEND Internal Medicine
DX: R19.7 Diarrhea, unspecified (principal); E88.09 Other disorders of plasma-protein metabolism, not elsewhere classified; I10 Essential (primary) hypertension; E78.5 Hyperlipidemia, unspecified; R79.89 Other specified abnormal findings of blood chemistry; Z53.29 Procedure and treatment not carried out because of patient's decision for other reasons; K21.9 Gastro-esophageal reflux disease without esophagitis; E86.0 Dehydration; Z87.11 Personal history of peptic ulcer disease; Z87.891 Personal history of nicotine dependence; Z79.899 Other long term (current) drug therapy
CPT/HCPCS: 71045; 76700; 80048; 80076; 81001; 82271; 83690; 84484; 85025; 85610; 85730; 87081; 93005; 93306; 99285; J1644; 36415-L1; 36415-TC